=== PATIENT | female | born 1980 | race Caucasian/White ===

== ENCOUNTER 2016-09-27 19:09 | Emergency (ER) | payer MEDICARE | END 2016-09-27 20:13 | disposition home or self-care (01) | LOC: ER 19:09 | DX: R51 Headache (principal); H15.001 Unspecified scleritis, right eye; F17.210 Nicotine dependence, cigarettes, uncomplicated; Z98.51 Tubal ligation status; Z79.899 Other long term (current) drug therapy | CPT/HCPCS: 96372; J1885 ==